=== PATIENT | female | born 1950 | race Caucasian/White ===

== ENCOUNTER 2016-07-28 08:39 | Emergency (ER) | payer OTHER ==
[~2016-07-28] VITALS: Ht 160 cm; Wt 111.9 kg
[2016-07-28 08:42] VITALS: TEMP 36.7; Ht 160 cm; Wt 111.9 kg
[2016-07-28] MEDS ORDERED: LISI40TA PO (08:53)
[2016-07-28] MEDS ORDERED: LEVO88TA PO (08:53)
[2016-07-28] MEDS ORDERED: CITA20TA4 PO (08:55)
[2016-07-28] MEDS ORDERED: PANT40TA PO (08:55)
[2016-07-28] MEDS ORDERED: SIMV20TA2 PO (08:55)
[2016-07-28] MEDS ORDERED: METO25TA3 PO (08:55)
[2016-07-28] MEDS ORDERED: CHOL1TAB12 PO (09:00)
[2016-07-28] MEDS ORDERED: CLR10 PO (09:00)
[2016-07-28] MEDS ORDERED: CLONIDINE HCL 0.1 MG TAB PO STA (09:20)
--- NOTE | 2016-07-28 09:27 | EMERGENCY ROOM VISIT NOTE ---
History First contact with patient: 08:57 Chief Complaint: ANXIETY Stated Complaint: KNOT IN MID BACK, ANXIOUS, FLUSHING FROM BREASTBON History of Present Illness The patient is a 66 year old female who presents to the Emergency Room with complaints of anxiety, palpitations, knot in her back and flushing sensation starting from her epigastric area and going up to head. She denies any chest pain but is concerned about cardiac etiology of her symptoms. Her symptoms started after having anxious thoughts regarding her upcoming doctors appointment on Thursday. She usual takes Ativan but ran out with her last prescription in February and is awaiting her annual visit for a re-prescription. She also takes citalopram for her anxiety but has not had a change in dose for years despite increasing anxiety due to living alone and family stresses with medical conditions (she is looking after her sister with Alzheimer's who lives in a us[facility] and her brother recently was diagnosed with lung ca. with metastatic disease). She denies any orthopnea, PND, shortness of breath, claudication of leg swelling. Stress test in 2004 was unremarkable myocardial ischemia. Review of Systems See HPI for pertinent positives & negatives. A total of 10 systems reviewed and were otherwise negative. Past Medical/Surgical History Medical Problems: (1) Bilateral tubal ligation (2) Hypercholesterolemia (3) HYPERTENSION NOS (4) HYPOTHYROIDISM NOS (5) Tonsillectomy Social History Smoking Status: Never Smoker Marital Status: Occupation Status: employed Current/Historical Medications Scheduled Cholecalciferol (Vitamin D3), 3,000 PO DAILY Citalopram Hydrobromide (Citalopram Hydrobromide), 30 MG PO DAILY Levothyroxine Sodium (Synthroid), 88 MCG PO DAILY Lisinopril (Zestril), 20 MG PO HS Loratadine (Claritin), 10 MG PO DAILY Metoprolol Succinate (Toprol Xl), 25 MG PO DAILY Pantoprazole (Protonix), 40 MG PO DAILY Simvastatin (Zocor), 20 MG PO HS Scheduled PRN Lorazepam (Ativan), 0.5 MG PO TID PRN for Anxiety/Agitation Allergies Coded Allergies: Guaifenesin (Verified Allergy, Unknown, 07/28/16) Phenylpropanolamine (Verified Allergy, Unknown, 07/28/16) Venlafaxine (Verified Allergy, Unknown, 07/28/16) Physical Exam Vital Signs Date Time Temp Pulse Resp B/P (MAP) Pulse Ox O2 Delivery O2 Flow Rate FiO2 07/28/16 11:09 80 23 07/28/16 11:02 161/111 07/28/16 10:39 77 23 96 07/28/16 10:32 143/94 07/28/16 10:09 75 23 97 07/28/16 10:02 143/96 07/28/16 09:39 83 17 96 07/28/16 09:32 155/121 07/28/16 09:09 92 19 99 07/28/16 09:06 103 07/28/16 09:04 145/107 07/28/16 08:42 36.7 99 16 151/81 99 Room Air Physical Exam VITAL SIGNS: were reviewed as above GENERAL: mild acute distress SKIN: Warm dry and pink, no rashes HEAD: Normocephalic and atraumatic EYES: extraocular muscles intact, pupils equal and reactive to light OROPHARYNX: non erythematous, clear and moist NECK: Supple, no adenopathy or meningismus LUNGS: Non tender to palpation, clear to auscultation, no accessory muscle use, back pain not reproducible HEART: Regular rate and rhythm, heart sounds 1+2, no murmurs ABDOMEN: Soft and nontender, bowel sounds normal BACK: no CVA tenderness EXTREMITIES: Warm and well perfused, no calf tenderness/swelling, no pedal edema. NEUROLOGICALLY: Awake alert and oriented without overt focal deficit. There is no facial droop. Speech is clear. Vision is grossly normal. MUSCULOSKELETAL: Good muscle tone. No evidence of trauma Medical Decision & Procedures ER Provider Diagnostic Interpretation: CHEST ONE VIEW PORTABLE CLINICAL HISTORY: Chest and back pain. Evaluate for mediastinal enlargement. COMPARISON STUDY: Chest radiograph October 29, 2012. FINDINGS: Lung volumes are normal. No consolidation is identified. Pulmonary vascularity is normal. No pneumothorax or pleural effusion is present. Cardiac size is normal. A lower mediastinal contour abnormality favors a hiatal hernia. Otherwise, mediastinal contours are normal. IMPRESSION: 1. No acute cardiopulmonary findings. 2. Suspected small hiatal hernia. Otherwise, normal mediastinal contours. Electronically signed by: Mil Raymundo M.D. 07/28/2016 9:40 AM Dictated Date/Time: 07/28/2016 9:39 AM Laboratory Results 07/28/16 10:00 Red Blood Count 5.68, Mean Corpuscular Volume 85.2, Mean Corpuscular Hemoglobin 28.5, Mean Corpuscular Hemoglobin Concent 33.5, Mean Platelet Volume 9.3, Neutrophils (%) (Auto) 71.2, Lymphocytes (%) (Auto) 20.8, Monocytes (%) (Auto) 6.9, Eosinophils (%) (Auto) 0.5, Basophils (%) (Auto) 0.2, Neutrophils # (Auto) 4.03, Lymphocytes # (Auto) 1.18, Monocytes # (Auto) 0.39, Eosinophils # (Auto) 0.03, Basophils # (Auto) 0.01 07/28/16 10:00 Test 07/28/16 10:00 White Blood Count 5.66 K/uL (4.8-10.8) Red Blood Count 5.68 M/uL (4.2-5.4) Hemoglobin 16.2 g/dL (12.0-16.0) Hematocrit 48.4 % (37-47) Mean Corpuscular Volume 85.2 fL (80-100) Mean Corpuscular Hemoglobin 28.5 pg (25-34) Mean Corpuscular Hemoglobin Concent 33.5 g/dl (32-36) Platelet Count 264 K/uL (130-400) Mean Platelet Volume 9.3 fL (7.4-10.4) Neutrophils (%) (Auto) 71.2 % Lymphocytes (%) (Auto) 20.8 % Monocytes (%) (Auto) 6.9 % Eosinophils (%) (Auto) 0.5 % Basophils (%) (Auto) 0.2 % Neutrophils # (Auto) 4.03 K/uL (1.4-6.5) Lymphocytes # (Auto) 1.18 K/uL (1.2-3.4) Monocytes # (Auto) 0.39 K/uL (0.11-0.59) Eosinophils # (Auto) 0.03 K/uL (0-0.5) Basophils # (Auto) 0.01 K/uL (0-0.2) RDW Standard Deviation 41.3 fL (36.4-46.3) RDW Coefficient of Variation 13.2 % (11.5-14.5) Immature Granulocyte % (Auto) 0.4 % Immature Granulocyte # (Auto) 0.02 K/uL (0.00-0.02) Anion Gap 9.0 mmol/L (3-11) Est Creatinine Clear Calc Drug Dose 78.4 ml/min Estimated GFR () 82.2 Estimated GFR (Non- 70.9 BUN/Creatinine Ratio 9.1 (10-20) Calcium Level 9.3 mg/dl (8.5-10.1) Troponin I < 0.015 ng/ml (0-0.045) Thyroid Stimulating Hormone (TSH) 0.942 uIu/ml (0.300-4.500) Medications Administered Medications (Trade) Dose Ordered Sig/Tegan Route Start Time Stop Time Status Last Admin Dose Admin Clonidine HCl (Catapres Tab) 0.1 mg NOW STAT PO 07/28/16 09:20 07/28/16 09:22 DC 07/28/16 09:31 0.1 MG Lorazepam (Ativan Tab) 0.5 mg NOW STAT PO 07/28/16 09:30 07/28/16 09:31 DC 07/28/16 09:33 0.5 MG ECG Indication: back/shoulder pain Rate (beats per minute): 82 Rhythm: normal sinus Findings: no acute ischemic change Comparison ECG Date: possible LVH Change: no significant change ED Course Complete history and physical examination was performed, initial routine labs ordered including TSH and troponin. Clonidine and ativan prescribed for anxiety Patient was discussed with Dr Menchaca who agreed with above plan After all results back they were discussed with the patient who felt much better and was discharged home with prescription of ativan Medical Decision Prior records/ancillary studies reviewed. Triage Nursing notes reviewed. Additional history obtained from patient Differential diagnosis: Etiologies such as cardiac ischemia, aortic dissection, pulmonary embolism, pneumonia, pneumothorax, musculoskeletal, infections, pericarditis, myocarditis , esophageal rupture, gastrointestinal, as well as others were entertained. Physical examination: As above. Unremarkable ER treatment provided: Clonidine 0.1mg and Ativan 0.5mg prescribed. On reassessment the patient felt better and her anxiety improved. Diagnostic interpretation by me: The electrocardiogram was negative for pathologic change. The labs showed elevated Hgb and she was recommended to follow up with her PCP regarding this, no daytime sleepiness but she does snore, discussed may need formal evaluation for potential MIGUEL. Otherwise unremarkable routine labs, troponin and TSH was normal. Imaging studies: Chest x-ray as above She most likely was having an acute anxiety attack. By the evaluation outlined above emergent etiologies such as cardiac ischemia, aortic dissection, pulmonary embolism, pneumonia, pneumothorax, infections, pericarditis, myocarditis, gastrointestinal, as well as others were deemed relatively unlikely. The patient informed about the findings as listed above. All questions were answered and she pleased with the treatment. Return instructions were outlined and the patient was discharged in stable condition. Outpatient prescription management: Ativan 0.5mg TID PRN for anxiety #12 Referral: The patient was referred back to her primary care physician for follow-up as previously arranged in 4 days for a recheck of the current condition. 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 [place] Drug Monitoring Program Search Results: patient reviewed within database, no issues identified, see additional documentation Drug Monitoring Findings: As reported by patient she takes ativan 0.5mg, last prescription consistent with patient's story and was in February 2015. Impression Primary Impression: Acute anxiety Departure Information Dispostion Home / Self-Care Condition GOOD Prescriptions Lorazepam (ATIVAN) 0.5 Mg Tab 0.5 MG PO TID Y for Anxiety/Agitation, #10 TAB Prov: Yonatan Boyd MD 07/28/16 Referrals No Doctor, Assigned (PCP) Patient Instructions My [facility] Resident Tracking Resident Involvement: Resident Care Provided Care Provided: Adult ED
[2016-07-28] MEDS ORDERED: LORAZEPAM 0.5 MG TAB PO STA (09:30)
--- NOTE | 2016-07-28 09:42 | DIAGNOSTIC IMAGING REPORT ---
CHEST ONE VIEW PORTABLE CLINICAL HISTORY: Chest and back pain. Evaluate for mediastinal enlargement. COMPARISON STUDY: Chest radiograph October 29, 2012. FINDINGS: Lung volumes are normal. No consolidation is identified. Pulmonary vascularity is normal. No pneumothorax or pleural effusion is present. Cardiac size is normal. A lower mediastinal contour abnormality favors a hiatal hernia. Otherwise, mediastinal contours are normal. IMPRESSION: 1. No acute cardiopulmonary findings. 2. Suspected small hiatal hernia. Otherwise, normal mediastinal contours. Electronically signed by: Mil Raymundo M.D. 07/28/2016 9:40 AM Dictated Date/Time: 07/28/2016 9:39 AM
[2016-07-28 10:15] LABS: BASO % 0.2 %; BASO ABS # 0.01 K/uL (0-0.2); COMPLETE YES; EOS % 0.5 %; HEMATOCRIT 48.4 % (37-47); IG% 0.4 %; LYMPH % 20.8 %; LYMPH ABS # 1.18 K/uL (1.2-3.4); MEAN CELL VOLUME 85.2 fL (80-100); MEAN CORPUSCULAR HEMOGLOBIN 28.5 pg (25-34); MEAN CORPUSCULAR HGB CONC 33.5 g/dl (32-36); MEAN PLATELET VOLUME 9.3 fL (7.4-10.4); MONO % 6.9 %; NEUT % 71.2 %; PLATELET COUNT 264 K/uL (130-400); RED BLOOD COUNT 5.68 M/uL (4.2-5.4); WHITE BLOOD COUNT 5.66 K/uL (4.8-10.8)
[2016-07-28 10:39] VITALS: O2SAT 96
[2016-07-28 10:39] LABS: BLOOD UREA NITROGEN 8 mg/dl (7-18); BUN/CREATININE RATIO 9.1 (10-20); CALCIUM 9.3 mg/dl (8.5-10.1); CARBON DIOXIDE 26 mmol/L (21-32); CHLORIDE 105 mmol/L (98-107); CREATININE 0.86 mg/dl (0.60-1.20); GLUCOSE 104 mg/dl (70-99); POTASSIUM 3.6 mmol/L (3.5-5.1); SODIUM 140 mmol/L (136-145)
[2016-07-28 10:49] LABS: THYROID STIMULATING HORMONE 0.942 uIu/ml (0.300-4.500)
[2016-07-28 11:02] VITALS: BP 161/111
[2016-07-28] MEDS ORDERED: LORA-741 PO (11:02)
[2016-07-28 11:09] VITALS: PULSE 80
--- NOTE | 2016-07-28 15:34 | EMERGENCY ROOM VISIT NOTE ---
ED Visit Note First contact with patient: 08:57 I have personally evaluated this patient examined her and reviewed the pertinent labs and data. I have discussed the case with the resident physician and agree with the plan. Please refer to the PA note. This patient comes in as described above. She is feeling anxious. She has a history of feeling anxiety related to her doctor's visits. She is scheduled see her doctor on Thursday and she is concerned about bad news. She also has a family member recently was diagnosed with cancer. This feels like her previous anxiety. She's had no chest pain. She felt jittery and anxious. She was given Ativan and is feeling better. Her EKG does not suggest acute coronary syndrome or arrhythmia. Chest x-ray was clear. She's had no acute electrolyte or metabolic abnormalities. On my exam, she is resting comfortably and feeling better after receiving anxiolytics. She was given a small prescription for Ativan. She will return if: increasing pain, worsening of symptoms, shortness of breath, fever or chills, any new problems concerns. She is happy with the plan and discharged to home. She should keep her appointment with her doctor.
== END 2016-07-28 11:20 | disposition home or self-care (01) ==
LOC: C.EDB 08:41
DX: F41.9 Anxiety disorder, unspecified (principal); E78.00 Pure hypercholesterolemia, unspecified; I10 Essential (primary) hypertension; E03.9 Hypothyroidism, unspecified; Z79.899 Other long term (current) drug therapy; Z98.51 Tubal ligation status; Z98.890 Other specified postprocedural states; Z88.8 Allergy status to other drugs, medicaments and biological substances; Z80.9 Family history of malignant neoplasm, unspecified